=== PATIENT | female | born 1975 | race American Indian/Alaskan Native ===

== ENCOUNTER 2019-01-22 09:18 | Outpatient (CLI) | payer OTHER ==
--- NOTE | 2019-01-23 08:49 | Mammography Report ---
DIGITAL SCREENING MAMMOGRAM WITH CAD, 01/22/2019 INDICATION: Routine screening mammography. TECHNIQUE: Digital bilateral 2D mammography was obtained in the craniocaudal and mediolateral obliq ue projections. This examination was interpreted with the benefit of Computer-Aided Detection analysi s. COMPARISON: None available. However, she indicated that she had a prior mammogram at [place]. FINDINGS: Breast Density: The breasts are heterogeneously dense, which may obscure small masses. Right asymmetries with architectural distortion require comparison with the prior mammogram or additi onal imaging. No suspicious calcifications of the right breast. There is no evidence of dominant mass , suspicious calcifications or architectural distortion in the left breast. IMPRESSION: Comparison with a previous mammogram is recommended. We will attempt to obtain a prior ma mmogram for comparison. If we do not obtain a mammogram within 30 days, a revised report will be issu ed recommending a recall for additional imaging. Please be advised that the patient should not schedu le an appointment for return until adequate time (at least 2 weeks) has passed for us to obtain the p rior mammogram. Follow up recommendation: Obtain prior study for comparison Category 0: Incomplete. Needs additional imaging evaluation and/or prior mammograms for comparison. A "normal" or negative report should not discourage follow up or biopsy of a clinically significant f inding. A written summary of these findings will be mailed to the patient. The patient will be entered into a mammography reporting system which will generate a reminder letter for the patient's next appointmen t at the appropriate interval. [employer] recommends yearly mammograms starting at age 40 and continuing as l traci as a woman is in good health. Breast MRI is recommended for women with an approximate 20-25% or greater lifetime risk of breast cancer, including women with a strong family history of breast or ova lizbet cancer or who have been treated for Hodgkin's disease. Signer Name: Navid Davis MD Signed: 01/23/2019 8:44 AM Workstation Name: [id number]
== END 2019-01-22 09:19 | disposition home or self-care (01) ==
LOC: US 09:18
PROVIDERS: ATTEND Internal Medicine
DX: Z12.31 Encounter for screening mammogram for malignant neoplasm of breast (principal)
CPT/HCPCS: 77067